=== PATIENT | female | born 2000 | race Caucasian/White ===

== ENCOUNTER 2021-06-24 09:31 | Emergency (ER) | payer OTHER ==
[~2021-06-24] VITALS: Ht 157.5 cm; Wt 52.2 kg
[2021-06-24] MEDS ORDERED: ONDANSETRON PF 4 MG/2 ML VIAL. IVP ONE (10:00)
[2021-06-24] MEDS ORDERED: IV NORMAL SALINE 1000ML BAG 1,000 ML IV ONE (10:00)
[2021-06-24 10:03] LABS: BASO % 1 % (0-3); EOS # 0.1 x10^3/uL (0.0-0.7); EOS % 2 % (0-3); HEMATOCRIT 37.7 % (36.0-47.0); HEMOGLOBIN 12.8 g/dL (12.0-15.5); LYMPH # 1.9 x10^3/uL (1.0-4.8); LYMPH % 32 % (24-48); MEAN CORPUSCULAR HEMOGLOBIN 29 pg (25-35); MEAN CORPUSCULAR HGB CONC 34 g/dL (31-37); MEAN CORPUSCULAR VOLUME 86 fL (79-100); MONO # 0.4 x10^3/uL (0.0-1.1); MONO % 8 % (0-9); NEUT # 3.4 x10^3/uL (1.8-7.7); NEUT % 58 % (31-73); PLATELET COUNT 232 x10^3/uL (140-400); RED BLOOD COUNT 4.38 x10^6/uL (3.50-5.40); RED CELL DISTRIBUTION WIDTH 12.7 % (11.5-14.5); WHITE BLOOD COUNT 5.9 x10^3/uL (4.0-11.0)
[2021-06-24] MEDS ORDERED: KETOROLAC 30 MG/ML VIAL. IVP ONE (10:15)
[2021-06-24 10:23] LABS: BILIRUBIN,URINE NEGATIVE (NEG); CALCIUM 8.9 mg/dL (8.5-10.1); CLARITY,URINE HAZY; COLOR,URINE YELLOW; CREATININE 0.8 mg/dL (0.6-1.0); GFR 89.7; NITRITE,URINE NEGATIVE (NEG); PROTEIN,URINE NEGATIVE (NEG-TRACE); UROBILINOGEN,URINE 0.2 mg/dL (0.2 mg/dL)
[2021-06-24 10:24] LABS: BACTERIA,URINE FEW /HPF (0-FEW)
[2021-06-24 10:29] LABS: ALBUMIN 4.2 g/dL (3.4-5.0); ALBUMIN/GLOBULIN RATIO 1.2 (1.0-1.7); TOTAL BILIRUBIN 0.3 mg/dL (0.2-1.0); TOTAL PROTEIN 7.6 g/dL (6.4-8.2)
--- NOTE | 2021-06-24 10:39 | RAD ---
CT of the abdomen and pelvis without contrast. 06/24/2021 10:11 AM Indication: Left flank pain. Comparison Study: None available. Technique: Multidetector CT imaging of the abdomen pelvis is obtained without administration of contr ast. Findings: The visualized bilateral lung bases are clear. The liver, spleen, bilateral adrenal glands, gallbladder, and pancreas have a normal noncontrast enh anced appearance. The right kidney is low-lying. The bilateral kidneys are otherwise grossly normal i n appearance. There is no evidence of nephrolithiasis or obstructive uropathy. No evidence of uretera l stone is seen. The bladder is grossly unremarkable. There is no significant free fluid or free air in the abdomen or pelvis. There is no evidence of bowel obstruction or significant inflamatory change . The appendix is visualized and grossly normal. There is no acute osseous abnormality identified. Impression: 1. No evidence of acute intra-abdominal abnormality 2. No evidence of nephrolithiasis or acute obstructive uropathy. CT DOSING PQRS STATEMENT: One or more of the following individualized dose reduction techniques were utilized for this examinat ion: 1. Automated exposure control 2. Adjustment of the mA and/or kV according to patient size 3. Use of iterative reconstruction technique Electronically signed by: Trino Estrada MD (06/24/2021 10:37 AM) [id number]
--- NOTE | 2021-06-24 10:44 | PHYS DOC ---
Past Medical History Past Surgical History: No Surgical History Smoking Status: Never Smoker Alcohol Use: None General Adult EDM: Chief Complaint: ABDOMINAL PAIN HPI: HPI: Patient is a 21 year old female who presents to the emergency department via [facility] director alumni relations transport complaining of a sudden onset left flank pain that started approximately 1 hour prior to arrival to the emergency department. 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 She reports a 10 out of 10 pain that is sharp and stabbing. Patient did not take any medications for pain prior to arrival to the emergency department, states she takes no prescription medications at home and has no allergies to medications. Patient was given 50 mcg fentanyl IV in route by EMS which brought her pain down to a 5 out of 10. Patient does report nausea, denies radiation of her abdominal discomfort. Denies vomiting diarrhea or constipation. Patient reports she has not had a bowel movement today, usu ally goes daily however is most often in the late afternoon. Patient reports her last bowel movement was yesterday afternoon. Patient denies recent traumatic injuries. Patient denies fever or chills, chest pain or chest palpitations, denies chest congestion or nasal congestion. Patient denies body aches, dizziness, syncopal or near syncopal episodes. Denies a surgical history, denies a family history of ovarian cysts, PCOS, or cancers. Patient denies history of kidney stones. Patient reports receiving the Depo-Provera control injection approximately a week ago, has not had menstrual cycles for at least 2 years since being on this medication. Patient denies increased urinary pressure, urinary frequency, hematuria or other dysuria, patient denies vaginal discharge, rashes or lesions to her vagina, denies STI concerns, states she is not sexually active. Review of Systems: Review of Systems: 14 body systems of review of systems have been reviewed. See HPI for pertinent positives and negative responses, otherwise all other systems are negative, nonpertinent or noncontributory. Constitutional: Negative except as outlined in HPI above. Skin: Negative except as outlined in HPI above. Eyes: Negative except as outlined in HPI above. HENT: Negative except as outlined in HPI above. Respiratory: Negative except as outlined in HPI above. Cardiovascular: Negative except as outlined in HPI above. GI: Negative except as outlined in HPI above. : Negative except as outlined in HPI above. Musculoskeletal: Negative except as outlined in HPI above. Integument: Negative except as outlined in HPI above. Neurologic: Negative except as outlined in HPI above. Endocrine: Negative except as outlined in HPI above. Lymphatic: Negative except as outlined in HPI above. Psychiatric: Negative except as outlined in HPI above. Heart Score: C/O Chest Pain: No Risk Factors: Risk Factors: DM, Current or recent (<one month) smoker, HTN, HLP, family history of CAD, obesity. Risk Scores: Score 0 - 3: 2.5% MACE over next 6 weeks - Discharge Home Score 4 - 6: 20.3% MACE over next 6 weeks - Admit for Clinical Observation Score 7 - 10: 72.7% MACE over next 6 weeks - Early Invasive Strategies Current Medications: Current Medications Medications (Trade) Dose Ordered Sig/Tyson Start Time Stop Time Status Last Admin Dose Admin Ketorolac Tromethamine (Toradol 30mg Vial) 30 mg 1X ONCE 06/24/21 10:15 06/24/21 10:16 DC 06/24/21 10:15 30 MG Ondansetron HCl (Zofran) 4 mg 1X ONCE 06/24/21 10:00 06/24/21 10:01 DC 06/24/21 10:14 4 MG Sodium Chloride 1,000 ml @ 1,000 mls/hr 1X ONCE 06/24/21 10:00 06/24/21 10:59 06/24/21 10:16 1,000 MLS/HR Allergies: Allergies: Allergies Coded Allergies Type Severity Reaction Last Updated Verified No Known Drug Allergies 06/24/21 No Physical Exam: PE: Constitutional: Well developed, well nourished, no acute distress, non-toxic appearance. 21-year-old female in no apparent distress. HENT: Normocephalic, atraumatic. Oropharynx moist, pink, no deep tissue infectious process appreciated. Eyes: Conjunctiva normal, no discharge. Neck: Normal range of motion, no stridor. Cardiovascular: No cyanosis appreciated, distal cap refill less than 2 seconds. Regular rate and rhythm. Lungs & Thorax: Patient is in no respiratory distress, lung sounds are clear to auscultation all lung monzon. Abdomen: No visualized abnormalities noted, normal bowel sounds all 4 quadrants, pain to palpation left lower quadrant extending to lateral flank. No skin d iscoloration of the abdomen appreciated, there are no surgical scars present. There are body piercings at umbilicus, no infectious process appreciated. Skin: Warm, dry, no erythema, no rash. Back: No deformities present, no midline spinal tenderness present, no right- sided CVA TTP, there is left-sided CVA TTP. Extremities: No tenderness, no cyanosis, no clubbing, ROM intact, no edema. Neurologic: Alert and oriented X 3, normal motor function, normal sensory function, no focal deficits noted. Psychologic: Affect normal, judgement normal, mood normal. Current Patient Data: Labs: Laboratory Tests Test 06/24/21 09:50 06/24/21 09:55 06/24/21 12:12 White Blood Count 5.9 x10^3/uL Red Blood Count 4.38 x10^6/uL Hemoglobin 12.8 g/dL Hematocrit 37.7 % Mean Corpuscular Volume 86 fL Mean Corpuscular Hemoglobin 29 pg Mean Corpuscular Hemoglobin Concent 34 g/dL Red Cell Distribution Width 12.7 % Platelet Count 232 x10^3/uL Neutrophils (%) (Auto) 58 % Lymphocytes (%) (Auto) 32 % Monocytes (%) (Auto) 8 % Eosinophils (%) (Auto) 2 % Basophils (%) (Auto) 1 % Neutrophils # (Auto) 3.4 x10^3/uL Lymphocytes # (Auto) 1.9 x10^3/uL Monocytes # (Auto) 0.4 x10^3/uL Eosinophils # (Auto) 0.1 x10^3/uL Basophils # (Auto) 0.0 x10^3/uL Urine Collection Type Unknown Void Urine Color Yellow Yellow Urine Clarity Hazy Clear Urine pH 7.0 8.5 Urine Specific [place] >=1.030 1.020 Urine Protein Negative mg/dL Negative mg/dL Urine Glucose (UA) Negative mg/dL Negative mg/dL Urine Ketones (Stick) Negative mg/dL Negative mg/dL Urine Blood Trace Negative Urine Nitrite Negative Negative Urine Bilirubin Negative Negative Urine Urobilinogen Dipstick 0.2 mg/dL 0.2 mg/dL Urine Leukocyte Esterase Small Trace Urine RBC 1-2 /HPF Rare /HPF Urine WBC 5-10 /HPF 5-10 /HPF Urine Squamous Epithelial Cells Mod /LPF Few /LPF Urine Bacteria Few /HPF Few /HPF Urine Mucus Marked /LPF Slight /LPF Sodium Level 142 mmol/L Potassium Level 4.0 mmol/L Chloride Level 108 mmol/L Carbon Dioxide Level 23 mmol/L Anion Gap 11 Blood Urea Nitrogen 9 mg/dL Creatinine 0.8 mg/dL Estimated GFR (Cockcroft-Gault) 89.7 BUN/Creatinine Ratio 11 Glucose Level 89 mg/dL Calcium Level 8.9 mg/dL Total Bilirubin 0.3 mg/dL Aspartate Amino Transf (AST/SGOT) 15 U/L Alanine Aminotransferase (ALT/SGPT) 13 U/L Alkaline Phosphatase 70 U/L Total Protein 7.6 g/dL Albumin 4.2 g/dL Albumin/Globulin Ratio 1.2 Lipase 99 U/L Bedside Urine HCG, Qualitative Hcg negative Current Medications Medications (Trade) Dose Ordered Sig/Tyson Route PRN Reason Start Time Stop Time Status Last Admin Dose Admin Ondansetron HCl (Zofran) 4 mg 1X ONCE IVP 06/24/21 10:00 06/24/21 10:01 DC 06/24/21 10:14 Sodium Chloride 1,000 ml @ 1,000 mls/hr 1X ONCE IV 06/24/21 10:00 06/24/21 10:59 DC 06/24/21 10:16 Ketorolac Tromethamine (Toradol 30mg Vial) 30 mg 1X ONCE IVP 06/24/21 10:15 06/24/21 10:16 DC 06/24/21 10:15 Laboratory Tests Test 06/24/21 09:50 06/24/21 09:55 White Blood Count 5.9 x10^3/uL (4.0-11.0) Red Blood Count 4.38 x10^6/uL (3.50-5.40) Hemoglobin 12.8 g/dL (12.0-15.5) Hematocrit 37.7 % (36.0-47.0) Mean Corpuscular Volume 86 fL (79-100) Mean Corpuscular Hemoglobin 29 pg (25-35) Mean Corpuscular Hemoglobin Concent 34 g/dL (31-37) Red Cell Distribution Width 12.7 % (11.5-14.5) Platelet Count 232 x10^3/uL (140-400) Neutrophils (%) (Auto) 58 % (31-73) Lymphocytes (%) (Auto) 32 % (24-48) Monocytes (%) (Auto) 8 % (0-9) Eosinophils (%) (Auto) 2 % (0-3) Basophils (%) (Auto) 1 % (0-3) Neutrophils # (Auto) 3.4 x10^3/uL (1.8-7.7) Lymphocytes # (Auto) 1.9 x10^3/uL (1.0-4.8) Monocytes # (Auto) 0.4 x10^3/uL (0.0-1.1) Eosinophils # (Auto) 0.1 x10^3/uL (0.0-0.7) Basophils # (Auto) 0.0 x10^3/uL (0.0-0.2) Urine Collection Type Unknown Urine Color Yellow Urine Clarity Hazy Urine pH 7.0 (<5.0-8.0) Urine Specific [place] >=1.030 (1.000-1.030) Urine Protein Negative mg/dL (NEG-TRACE) Urine Glucose (UA) Negative mg/dL (NEG) Urine Ketones (Stick) Negative mg/dL (NEG) Urine Blood Trace (NEG) Urine Nitrite Negative (NEG) Urine Bilirubin Negative (NEG) Urine Urobilinogen Dipstick 0.2 mg/dL (0.2 mg/dL) Urine Leukocyte Esterase Small (NEG) Urine RBC 1-2 /HPF (0-2) Urine WBC 5-10 /HPF (0-4) Urine Squamous Epithelial Cells Mod /LPF Urine Bacteria Few /HPF (0-FEW) Urine Mucus Marked /LPF Sodium Level 142 mmol/L (136-145) Potassium Level 4.0 mmol/L (3.5-5.1) Chloride Level 108 mmol/L (98-107) H Carbon Dioxide Level 23 mmol/L (21-32) Anion Gap 11 (6-14) Blood Urea Nitrogen 9 mg/dL (7-20) Creatinine 0.8 mg/dL (0.6-1.0) Estimated GFR (Cockcroft-Gault) 89.7 BUN/Creatinine Ratio 11 (6-20) Glucose Level 89 mg/dL (70-99) Calcium Level 8.9 mg/dL (8.5-10.1) Total Bilirubin 0.3 mg/dL (0.2-1.0) Aspartate Amino Transferase (AST) 15 U/L (15-37) Alanine Aminotransferase (ALT) 13 U/L (14-59) L Alkaline Phosphatase 70 U/L (46-116) Total Protein 7.6 g/dL (6.4-8.2) Albumin 4.2 g/dL (3.4-5.0) Albumin/Globulin Ratio 1.2 (1.0-1.7) Lipase 99 U/L (73-393) POC Urine HCG, Qualitative Hcg negative (Negative) Laboratory Tests 06/24/21 09:50 Laboratory Tests 06/24/21 09:50 Vital Signs: Vital Signs Date Time Temp Pulse Resp B/P (MAP) Pulse Ox O2 Delivery O2 Flow Rate FiO2 06/24/21 09:35 97.8 83 16 108/63 (78) 100 Room Air 97.8 EKG: EKG: [] Radiology/Procedures: Radiology/Procedures: REASON: left flank pain, stone study PROCEDURE: CT ABDOMEN PELVIS WO CONTRAST CT of the abdomen and pelvis without contrast. 06/24/2021 10:11 AM Indication: Left flank pain. Comparison Study: None available. Technique: Multidetector CT imaging of the abdomen pelvis is obtained without administration of contrast. Findings: The visualized bilateral lung bases are clear. The liver, spleen, bilateral adrenal glands, gallbladder, and pancreas have a normal noncontrast enhanced appearance. The right kidney is low-lying. The bila teral kidneys are otherwise grossly normal in appearance. There is no evidence of nephrolithiasis or obstructive uropathy. No evidence of ureteral stone is seen. The bladder is grossly unremarkable. There is no significant free fluid or free air in the abdomen or pelvis. There is no evidence of bowel obstruction or significant inflamatory change. The appendix is visualized and grossly normal. There is no acute osseous abnormality identified. Impression: 1. No evidence of acute intra-abdominal abnormality 2. No evidence of nephrolithiasis or acute obstructive uropathy. CT DOSING PQRS STATEMENT: One or more of the following individualized dose reduction techniques were utilized for this examination: 1. Automated exposure control 2. Adjustment of the mA and/or kV according to patient size 3. Use of iterative reconstruction technique Electronically signed by: Trino Estrada MD (06/24/2021 10:37 AM) [id number] Course & Med Decision Making: Course & Med Decision Making Pertinent Labs and Imaging studies reviewed. (See chart for details) 21-year-old female, vital signs reviewed, presents to the emergency department via EMS for sudden onset of left flank pain. Physical examination concerning for renal colic of the left, will order saline lock, urinalysis assay, urine test, 1 L normal saline, 4 mg Zofran for nausea, patient has current pain a 5 out of 10, will IV Toradol 15 - test, CT abdomen pelvis without contrast. Patient is not for urine test, IV Toradol given for 5 out of 10 pain Patient CBC and CMP unremarkable, patient's urine results consistent with contaminated sample, CT result nonconcerning for nephrolithiasis, discussed findings with patient, patient reports pain is down to a 1 out of 10, discussed with patient repeat urinalysis assay, good external cleansing with cleansing wip es prior to giving sample, patient reports she did not cleanse prior to the given the initial urinalysis sample. Second clean-catch urine sample results equivocal. There was no hematuria present. Discussed with patient all findings, reviewed return to ER precautions and concerns, strict follow-up with primary care for ongoing abdominal discomfort, patient is asking for work excuse for today to return to work tomorrow. Patient reports her abdomen pain is a 1 out of 10 and is tolerable at this time. Patient gave verbal understanding of and is amenable to ED discharge planning. Discussed with the patient all findings and diagnostic testing as well as the need to follow-up with their primary care provider for further evaluation and treatment or return to the ED if any new or worsening symptoms. Strict return precautions were also discussed at length, the patient voiced understanding and agreement with the discharge planning. The patient was nontoxic in appearance, in no apparent distress, and hemodynamically stable at the time of disposition. Dragon Disclaimer: [employer] IT Disclaimer: This electronic medical record was generated, in whole or in part, using a voice recognition dictation system. Departure Departure Impression: Primary Impression: Abdominal pain Qualified Codes: R10.32 - Left lower quadrant pain Disposition: HOME / SELF CARE / HOMELESS Condition: GOOD Referrals: NO PCP (PCP) Patient Instructions: Abdominal Pain, Abdominal Pain (Nonspecific) Additional Instructions: You were seen today in the emergency department for abdominal pain on the left lower quadrant. A CT scan of your abdomen did not show any concerning findings that would warrant immediate attention by a hospital specialist or admission to the hospital. Your blood work did not show any concerning findings of infection or electrolyte abnormalities. Your are not for urine test. As we discussed your urine did show some small amount of bacteria however I suspect this was a contaminated specimen. You will be contacted if any clark rning bacteria is growing in the lab. You may return back to work tomorrow. I have attached a list of area healthcare clinics and physicians for you to establish primary care with. If your abdomen pain persists, please follow-up with your primary care physician for ongoing evaluation and management of your abdominal discomfort. We had discussed constipation and medications for constipation, you do not need to start on any medications such as stool softeners as you reported you have bowel movements daily. Thank you for visiting our Emergency Department. It was a pleasure taking care of you today in the emergency department and we appreciate you trusting us with your care. If any additional problems come up don't hesitate to return to visit us. Please follow up with your primary care provider so they can plan additional care if needed and know about the problem that you had. If symptoms worsen come back to the Emergency Department. Any concerning symptoms that start such as chest pain, shortness of air, weakness or numbness on one side of the body, running high fevers or any other concerning symptoms return to the ER. EMERGENCY DEPARTMENT GENERAL DISCHARGE INSTRUCTIONS Thank you for coming to [facility] Emergency Department (ED) today and trusting us with you care. We trust that you had a positive experience in our Emergency Department. If you wish to speak to the department management, you may call the Director at [phone]. YOUR FOLLOW UP INSTRUCTIONS ARE FOLLOWS: 1. Do you have a private Doctor? If you do not have a private doctor, please ask for a resource list of physicians or clinics that may be able to assist you with follow up care. 2. The Emergency Physicain has interpreted your x-rays. The X-Ray specialist will also review them. If there is a change in the findings, you will be notified in 48 hours when at all possible. 3. A lab test or culture has been done, your results will be reviewed and you will be notified if you need a change in treatment. ADDITIONAL INSTRUCTIONS AND INFORMATION: 1. Your care today has been supervised by a physician who is specially trained in emergency care. Many problems require more than one evaluation for a complete diagnosis and treatment. We recommend that you schedule your follow up appointment as recommended to ensure complete treatment of you illness or injury. If you are unable to obtain follow up care and continue to have a problem, or if your condition worsens, we recommend that you return to the ED. 2. We are not able to safely determine your condition over the phone nor are we able to give sound medical advice over the phone. For these safety reasons, if you call for medical advice we will ask you to come to the ED for further evaluation. 3. If you have any questions regarding these discharge instructions please call the ED at [phone]. SAFETY INFORMATION: In the interest of safety, wellness, and injury prevention; we encourage you to wear your sealbelt, if you smoke; quite smoking, and we encourage family to use a protec tive helmet for bicycling and other sporting events that present an increased risk for head injury. IF YOUR SYMPTOMS WORSEN OR NEW SYMPTOMS DEVELOP, OR YOU HAVE CONCERNS ABOUT YOUR CONDITION; OR IF YOUR CONDITION WORSENS WHILE YOU ARE WAITING FOR YOUR FOLLOW UP APPOINTMENT; EITHER CONTACT YOUR PRIMARY CARE DOCTOR, THE PHYSICIAN WHOSE NAME AND NUMBER YOU WERE GIVEN, OR RETURN TO THE ED IMMEDIATELY. PRAMOD ALARCON APRN Jun 24, 2021 10:44
[2021-06-24 11:26] VITALS: BP 106/62
[2021-06-24 12:41] LABS: BILIRUBIN,URINE NEGATIVE (NEG); CLARITY,URINE CLEAR; COLOR,URINE YELLOW; NITRITE,URINE NEGATIVE (NEG); PH,URINE 8.5 (<5.0-8.0); PROTEIN,URINE NEGATIVE (NEG-TRACE); UROBILINOGEN,URINE 0.2 mg/dL (0.2 mg/dL)
[2021-06-24 12:42] LABS: BACTERIA,URINE FEW /HPF (0-FEW)
[2021-06-24 12:43] LABS: RBC,URINE RARE /HPF (0-2)
== END 2021-06-24 13:14 | disposition home or self-care (01) ==
LOC: ER 09:31
DX: R10.32 Left lower quadrant pain (principal)
CPT/HCPCS: 36415; 74176; 80053; 81001; 81025; 83690; 85025; 87086; 96361; 96374; 96375; 99284; J1885; J2405; J7030